=== PATIENT | female | born 1965 | race Caucasian/White ===

== ENCOUNTER → 2017-11-01 | Outpatient (CLI) | payer OTHER ==
[~2017-11-01] MED LIST: ATOR20 PO; ESTRADIOL TP; Fish Oil 10001000 MG PO; Flonase 0.05% N16 GM; K-Dur20 MEQ PO; LISI5 PO; MULVITMINE PO; PANT40 PO; ROSU5 PO; UBID100 PO; VALA500 PO; VITAMIN D PO; VITAMIN D32000 UNI1 PO; XYZAL5 MG PO
[2017-11-03 14:05] LABS: HPV Genotype 16 Not Detected (NOTDET); HPV Genotype 18 Not Detected (NOTDET)
[2017-11-08 12:08] LABS: HPV High Risk Other Not Detected (NOTDET)
[2017-11-08 13:28] LABS: Source VAGINA
== END | disposition home or self-care (01) ==
LOC: OLS 16:48 → LAB SHORT 16:48
PROVIDERS: Nurse Practitioner Women's Health
DX: Z12.72 Encounter for screening for malignant neoplasm of vagina (principal); Z91.89 Other specified personal risk factors, not elsewhere classified
CPT/HCPCS: 87624; G0123

== ENCOUNTER → 2017-11-05 | Outpatient (CLI) | payer OTHER | END | disposition home or self-care (01) | LOC: PLD 10:49 → LAB SHORT 10:49 | DX: D22.71 Melanocytic nevi of right lower limb, including hip (principal) | CPT/HCPCS: 88305 ==

== ENCOUNTER → 2018-11-27 | Outpatient (CLI) | payer OTHER ==
[2018-11-29 15:06] LABS: HPV 16 Negative (Negative); HPV 18 Negative (Negative); HPV OTHER HR TYPES Negative (Negative)
== END | disposition home or self-care (01) ==
LOC: LAB 18:55 → LAB SHORT 18:55
PROVIDERS: Obstetrics & Gynecology Gynecology
DX: Z12.72 Encounter for screening for malignant neoplasm of vagina (principal)
CPT/HCPCS: 87624; G0123